=== PATIENT | female | born 1965 | race African-American/Black ===

== ENCOUNTER 2020-12-07 12:33 | Emergency (ER) | payer OTHER ==
[~2020-12-07] VITALS: Ht 167.6 cm; Wt 113.6 kg
[~2020-12-07 12:33] MED LIST: CALC1TAB93 PO; ESCI20TA87 PO; METF-960 PO; TOPI100T37 PO
[2020-12-07 16:52] VITALS: BP 120/60
== END 2020-12-07 16:53 | disposition home or self-care (01) ==
LOC: EMS 12:33
DX: S29.012A Strain of muscle and tendon of back wall of thorax, initial encounter (principal); E11.9 Type 2 diabetes mellitus without complications; F32.9 Major depressive disorder, single episode, unspecified; X50.9XXA Other and unspecified overexertion or strenuous movements or postures, initial encounter; Y93.89 Activity, other specified; Y92.89 Other specified places as the place of occurrence of the external cause; Y99.8 Other external cause status
CPT/HCPCS: 82962; 99282

== ENCOUNTER 2021-11-26 15:57 | Emergency (ER) | payer OTHER ==
[~2021-11-26] VITALS: Ht 160 cm; Wt 85.0 kg
[~2021-11-26 15:57] MED LIST changes: +METF-1211 PO; -METF-960 PO
[2021-11-26] MEDS ORDERED: LEVE500T20 PO (16:14)
[2021-11-26] MEDS ORDERED: ACETAMINOPHEN 500 MG TABLET PO ONE (16:30)
[2021-11-26] MEDS ORDERED: SUMA50TA17 PO (16:31)
[2021-11-26] MEDS ORDERED: LATA2.5D14 OU (16:31)
[2021-11-26] MEDS ORDERED: ATOR20TA65 PO (16:31)
[2021-11-26] MEDS ORDERED: CALC-789 PO (16:32)
[2021-11-26 20:46] VITALS: BP 126/71
== END 2021-11-26 21:00 | disposition home or self-care (01) ==
LOC: EMS 16:03
DX: S00.83XA Contusion of other part of head, initial encounter (principal); F32.A Depression, unspecified; E11.9 Type 2 diabetes mellitus without complications; Z86.69 Personal history of other diseases of the nervous system and sense organs; Z98.890 Other specified postprocedural states; Z91.040 Latex allergy status; W22.8XXA Striking against or struck by other objects, initial encounter; Y93.89 Activity, other specified; Y92.89 Other specified places as the place of occurrence of the external cause; Y99.8 Other external cause status
CPT/HCPCS: 70450; 72125; 99285

== ENCOUNTER 2025-03-02 09:19 | Emergency (ER) | payer MEDICAID, OTHER ==
[~2025-03-02] VITALS: Ht 161.3 cm; Wt 95.9 kg
[~2025-03-02 09:19] MED LIST changes: +ATOR20TA65 PO; +CALC-789 PO; -CALC1TAB93 PO; +LATA2.5D7 OU; +LEVE-71 PO; +SUMA50TA17 PO; +TOPI-258 PO; -TOPI100T37 PO
[2025-03-02 09:26] VITALS: BP 124/68; PULSE 75; RESP 18; TEMP 97.7; O2SAT 98
[2025-03-02 09:51] LABS: GLUCOMETER DEV NAME(LOC) ER.7; GLUCOSE,POINT OF CARE 95 MG/DL (70-110)
[2025-03-02] MEDS: LIDOCAINE 5% TRANSDERMAL PATCH TD ONE (13:35)
[2025-03-02] MEDS ORDERED: SULF-261 PO (13:37)
[2025-03-02] MEDS ORDERED: IBUP-1492 PO (13:37)
[2025-03-02] MEDS ORDERED: CEPH-558 PO (13:37)
== END 2025-03-02 13:54 | disposition home or self-care (01) ==
LOC: EMS 09:19
DX: L02.212 Cutaneous abscess of back [any part, except buttock and flank] (principal); E11.9 Type 2 diabetes mellitus without complications; F32.A Depression, unspecified; N64.4 Mastodynia; Z86.73 Personal history of transient ischemic attack (TIA), and cerebral infarction without residual deficits; Z91.040 Latex allergy status; Z98.84 Bariatric surgery status; Z79.899 Other long term (current) drug therapy
CPT/HCPCS: 82962; 99283